=== PATIENT | male | born 1970 | race Caucasian/White ===

== ENCOUNTER 2017-06-30 14:57 | Inpatient (IN) | payer MEDICAID ==
[~2017-06-30] VITALS: Ht 182.9 cm; Wt 97.5 kg
[~2017-06-30 14:57] MED LIST: BUDEPRION SR150 MG; CYMBALTA60 MG; GEODON60 MG; IBUPROFEN 800800 M1; JANUMET 50-1,01 EACH; LAMOTRIGINE100 MG; LISINOPRIL-HCT1 EAC1; LOVAZA1000 MG; RANITIDINE HCL150 M1; TRILIPIX135 MG
[2017-06-30 14:58] VITALS: BP 147/87
[2017-06-30 15:20] LABS: ABSOLUTE BASOPHILS 0.1 thou/uL (0.0-0.2); ABSOLUTE EOSINOPHILS 0.2 thou/uL (0.0-0.7); ABSOLUTE LYMPHOCYTES 2.4 thou/uL (0.8-5.3); ABSOLUTE MONOCYTES 0.5 thou/uL (0.0-1.2); ABSOLUTE NEUTROPHILS 4.8 thou/uL (1.6-8.1); BASOPHILS 0.8 %; EOSINOPHILS 2.2 %; HEMOGLOBIN 14.8 gm/dL (14.0-18.0); LYMPHOCYTES 30.3 %; MCH 31.4 pg (26.0-34.0); MCHC 35.2 g/dL (28.0-37.0); MCV 89.4 fL (80.0-100.0); MONOCYTES 5.9 %; MPV 8.8 fl. (7.2-11.1); NUCLEATED RBCS 0 /100WBC; PLATELET COUNT* 183 thou/uL (150-400); POLYS 60.8 %; RDW-CV 13.3 % (10.5-14.5); WBC 7.9 thou/uL (4.0-11.0)
[2017-06-30 15:26] LABS: ANION GAP 11 mmol/L (7-16); BUN 15 mg/dL (7-18); CALCIUM 7.9 mg/dL (8.5-10.1); CHLORIDE 93 mmol/L (98-107); CO2 23 mmol/L (21-32); CREATININE 0.9 mg/dL (0.6-1.3); GLUCOSE 453 mg/dL (70-99); POTASSIUM 3.9 mmol/L (3.5-5.1); SODIUM 127 mmol/L (136-145)
[2017-06-30 15:38] LABS: ALBUMIN 3.3 g/dL (3.4-5.0); ALKALINE PHOSPHATASE 134 U/L (46-116); SGPT 20 U/L (30-65); TOTAL BILIRUBIN 0.5 mg/dL (<0.1-1.0); TOTAL PROTEIN 6.6 g/dL (6.4-8.2); TROPONIN-I LEVEL <0.06 ng/mL (<0.06)
[2017-06-30 16:00] LABS: SGOT 18 U/L (15-37)
[2017-06-30 16:39] LABS: ACETAMINOPHEN < 2 ug/mL (10-30); ALCOHOL < 10 mg/dL (<10); SALICYLATE 3.2 mg/dL (2.8-20.0)
[2017-06-30 17:26] LABS: URINE BILIRUBIN NEGATIVE (Negative); URINE BLOOD NEGATIVE (Negative); URINE CLARITY CLEAR; URINE COLOR YELLOW; URINE GLUCOSE-RANDOM 3+ (Negative); URINE KETONES NEGATIVE (Negative); URINE LEUKOCYTES-REFLEX NEGATIVE (Negative); URINE NITRITE-REFLEX NEGATIVE (Negative); URINE PROTEIN NEGATIVE (Negative); URINE SPECIFIC GRAVITY 1.015 (1.005-1.030); URINE UROBILINOGEN 0.2 E.U./dl (0.2-1.0)
[2017-06-30 17:31] LABS: AMP/METHAMP POSITIVE (Negative); BARBITURATES Negative (Negative); BENZODIAZEPINES Negative (Negative); COCAINE Negative (Negative); METHADONE Negative (Negative); OPIATES Negative (Negative); PCP Negative (Negative); THC Negative (Negative)
[2017-06-30 17:43] LABS: BE -3.8 mmol/L (-2 to +3); HCO3 21.9 mmol/L (22.0-26.0); PCO2 42.3 mmHg (35.0-45.0); PO2 103.8 mmHg (75.0-100.0); pH 7.332 (7.340-7.450)
[2017-06-30 21:15] VITALS: BP 133/85
[2017-06-30 22:00] VITALS: BP 147/86
--- NOTE | 2017-06-30 22:24 | NUR ---
2119 ORIENTED X 4, SLEEPY GENTLEMAN TO ROOM 317 BY CART FROM ER IN STABLE CONDITION. COOPERATIVE WITH ADMISSION PROCESS. ROUTINES IN PROGRESS. SNACK PROVIDED WITH HS MEDS. VITAL SIGNS STABLE. PLAN OF CARE REVIEWED WITH PATIENT WHO VERBALIZES UNDERSTANDING AND IS IN AGREEMENT. CONTINUE TO MONITOR.
[2017-07-01 05:09] LABS: HEMATOCRIT 42.4 % (42.0-52.0); HEMOGLOBIN 14.9 gm/dL (14.0-18.0); MCHC 35.2 g/dL (28.0-37.0); MPV 8.8 fl. (7.2-11.1); RBC 4.82 mil/uL (4.50-6.00); RDW-CV 13.5 % (10.5-14.5); WBC 7.5 thou/uL (4.0-11.0)
[2017-07-01 05:29] LABS: CALCIUM 8.4 mg/dL (8.5-10.1); CREATININE 0.8 mg/dL (0.6-1.3); MAGNESIUM 1.9 mg/dL (1.8-2.4); POTASSIUM 3.7 mmol/L (3.5-5.1)
--- NOTE | 2017-07-01 05:31 | NUR ---
PATIENT HAS REMAINED ALERT AND ORIENTED X 4 THROUGHOUT THE SHIFT AND RESTING QUIETLY ON HOURLY ROUNDS. UP INDEPENDENTLY TO BR. BM SINCE ARRRIVAL TO UNIT. MEDICATED X 1 FOR HEADACHE. MEDS INITIATED PER ORDER. VITAL SIGNS STABLE. CONTINUE TO MONITOR.
[2017-07-01 09:00] VITALS: BP 136/72
--- NOTE | 2017-07-01 15:54 | EKG ---
[place] [address] ELECTROCARDIOGRAM REPORT Name: ROBERTO BRITO Room: [address] IN [facility]#: [id number] Admission: 06/30/17 Attend Phys: Khris Ennis, Discharge: Date of : 66 Report #: [id number] THIS REPORT FOR: //name// [facility] ED Test Date: 2017-06-30 Test Time: 15:16:45 Pat Name: ROBERTO BRITO Department: Room: Gender: M Chemical Processor: LAMONTE : 1970 Requested By: Nany Vázquez Order Number: [id number] MD: Rick Garcia Measurements Intervals [place] Rate: 86 P: 49 [place]: 135 QRS: 38 QRSD: 92 T: 11 QT: 356 QTc: 426 Interpretive Statements Sinus rhythm Baseline wander in lead(s) V1,V3 No previous ECG available for comparison Electronically Signed On 07-01-2017 15:54:43 CDT by Rick Garcia [email or web address] <ELECTRONICALLY SIGNED> By: Rick Garcia MD, [facility] 07/01/17 1554 1516 15 Rick Garcia MD, FACC /EPI
[2017-07-01 17:04] VITALS: BP 145/94
--- NOTE | 2017-07-01 17:14 | NUR ---
PATIENT REMAINS ALERT AND ORIENTED. REPORTS LEFT SHOULDER PAIN FROM PREVIOUS INJURY. WANTS A CORTISONE SHOT WHILE IN HOSPITAL. AMBULATES AD ARTIS. EDUCATED ON SMOKING POLICY. NICOTINE PATCH IN PLACE. IV SALINE LOCKED. SHOWERED THIS EVENING. SSI GIVEN ORDERED. CALL LIGHT WITHIN REACH. WILL CONTINUE TO MONITOR.
[2017-07-01 22:00] VITALS: BP 122/77
[2017-07-01 22:11] LABS: GLYCOHEMOGLOBIN (HGB A1C) 12.2 % (4.8-5.6)
[2017-07-02 03:11] VITALS: BP 145/94
--- NOTE | 2017-07-02 06:55 | NUR ---
ALERT AND ORIENTED. RESTED QUIETLY IN BED ALL NIGHT. DENIES NEED FOR PAIN OR NAUSEA MEDICATION. UP AD ARTIS IN ROOM. CALL LIGHT WITHIN REACH.
[2017-07-02 08:42] LABS: HEMATOCRIT 43.5 % (42.0-52.0); HEMOGLOBIN 15.1 gm/dL (14.0-18.0); MCH 30.7 pg (26.0-34.0); MCHC 34.7 g/dL (28.0-37.0); MCV 88.5 fL (80.0-100.0); MPV 8.4 fl. (7.2-11.1); RBC 4.91 mil/uL (4.50-6.00); RDW-CV 12.7 % (10.5-14.5); WBC 8.2 thou/uL (4.0-11.0)
[2017-07-02 08:55] LABS: ALBUMIN 3.1 g/dL (3.4-5.0); CALCIUM 8.2 mg/dL (8.5-10.1); CREATININE 0.7 mg/dL (0.6-1.3); MAGNESIUM 1.7 mg/dL (1.8-2.4); POTASSIUM 3.9 mmol/L (3.5-5.1); TOTAL BILIRUBIN 0.5 mg/dL (<0.1-1.0); TOTAL PROTEIN 6.6 g/dL (6.4-8.2)
--- NOTE | 2017-07-02 08:59 | NUR ---
Nutrition: Pt admitted with uncontrolled DM. Pt has h/o noncompliance, DM, HTN, HLD, polysubstance abuse, meth abuse, schizo, GERD. On linagliptin and SSI. A1c 12.2%, BG 240 this morning. Albumin 3.3. +BM yday. Wt: 215#. Per H&P, his DM is treated as type 2, but he is considered type 1.5. Poor nutrition-quality of life R/T lifestyle/substance abuse AEB labs, noncompliance, DM. Due to noncompliance, no nutrition educ given today. If nutrition education is desired, please consult. GOAL: better BG control, better medical compliance.
[2017-07-02 09:00] VITALS: BP 136/87
--- NOTE | 2017-07-02 10:22 | NUR ---
PT LEFT AMA, REFUSING TO WAIT FOR HIMS TO ROUND. PT STATED 'I'M GOOD' WHEN ASKED REASON FOR LEAVING. AMA FORM SIGNED AFTER EDUCATION GIVEN. IV REMOVED BEFORE PT LEAVING. PT DID REQUEST NUMBER FOR MEDICAID TRANSPORTATION AND WAS GIVEN NUMBER.
[2017-07-02] MEDS ORDERED: NOHOMEMEDICATIONS (15:14)
== END 2017-07-02 10:15 | disposition left against medical advice (07) | DRG 638 ==
LOC: M.ERS 14:57 → M.TBA-ER 19:05 → M.ORTHSURG 21:19 → M.3W 21:20
PROVIDERS: Nurse Practitioner Family; ADMIT Family Medicine
DX: E11.65 Type 2 diabetes mellitus with hyperglycemia (principal); F15.20 Other stimulant dependence, uncomplicated; E87.1 Hypo-osmolality and hyponatremia; I10 Essential (primary) hypertension; E78.00 Pure hypercholesterolemia, unspecified; K21.9 Gastro-esophageal reflux disease without esophagitis; F32.9 Major depressive disorder, single episode, unspecified; F41.9 Anxiety disorder, unspecified; F25.9 Schizoaffective disorder, unspecified; F17.210 Nicotine dependence, cigarettes, uncomplicated; E78.5 Hyperlipidemia, unspecified; Z53.21 Procedure and treatment not carried out due to patient leaving prior to being seen by health care provider; Z88.6 Allergy status to analgesic agent; Z91.19 Patient's noncompliance with other medical treatment and regimen; Z79.899 Other long term (current) drug therapy

== ENCOUNTER 2017-07-02 15:08 | Emergency (ER) | payer MEDICAID ==
[~2017-07-02] VITALS: Ht 180.3 cm; Wt 97.5 kg
[2017-07-02] MEDS ORDERED: NOHOMEMEDICATIONS (15:14)
[2017-07-02 16:23] VITALS: BP 147/97
== END 2017-07-02 16:25 | disposition home or self-care (01) ==
LOC: M.ERS 15:08
DX: E11.9 Type 2 diabetes mellitus without complications (principal); I10 Essential (primary) hypertension; K21.9 Gastro-esophageal reflux disease without esophagitis; E78.00 Pure hypercholesterolemia, unspecified; F41.9 Anxiety disorder, unspecified; F32.9 Major depressive disorder, single episode, unspecified; F25.9 Schizoaffective disorder, unspecified; F17.210 Nicotine dependence, cigarettes, uncomplicated; Z88.6 Allergy status to analgesic agent

== ENCOUNTER 2017-08-04 22:07 | Emergency (ER) | payer MEDICAID ==
[~2017-08-04] VITALS: Ht 182.9 cm; Wt 95.3 kg
[~2017-08-04 22:07] MED LIST changes: +NOHOMEMEDICATIONS
[2017-08-04 22:38] LABS: ABSOLUTE EOSINOPHILS 0.2 thou/uL (0.0-0.7); ABSOLUTE LYMPHOCYTES 2.2 thou/uL (0.8-5.3); ABSOLUTE MONOCYTES 0.6 thou/uL (0.0-1.2); ABSOLUTE NEUTROPHILS 4.5 thou/uL (1.6-8.1); BASOPHILS 0.5 %; EOSINOPHILS 2.5 %; HEMATOCRIT 42.1 % (42.0-52.0); HEMOGLOBIN 14.4 gm/dL (14.0-18.0); MCHC 34.1 g/dL (28.0-37.0); MCV 90.9 fL (80.0-100.0); MONOCYTES 8.2 %; MPV 7.7 fl. (7.2-11.1); NUCLEATED RBCS 0 /100WBC; PLATELET COUNT* 228 thou/uL (150-400); POLYS 59.8 %; RBC 4.64 mil/uL (4.50-6.00); RDW-CV 13.7 % (10.5-14.5); WBC 7.5 thou/uL (4.0-11.0)
[2017-08-04 22:46] LABS: CALCIUM 9.2 mg/dL (8.5-10.1); CREATININE 1.3 mg/dL (0.6-1.3); POTASSIUM 3.5 mmol/L (3.5-5.1)
[2017-08-04 22:51] LABS: ALBUMIN 3.8 g/dL (3.4-5.0); TOTAL BILIRUBIN 0.4 mg/dL (<0.1-1.0); TOTAL PROTEIN 7.1 g/dL (6.4-8.2)
[2017-08-04 23:00] LABS: ACETAMINOPHEN < 2 ug/mL (10-30); ALCOHOL < 10 mg/dL (<10); SALICYLATE 3.5 mg/dL (2.8-20.0)
[2017-08-04] MEDS ORDERED: TRIAMCINOLONE A80 G2 TOP (23:25)
[2017-08-04] MEDS ORDERED: BENADRYL25 MG PO (23:26)
[2017-08-04 23:39] VITALS: BP 132/86
== END 2017-08-04 23:39 | disposition home or self-care (01) ==
LOC: M.ERS 22:07
PROVIDERS: Emergency Medicine
DX: S80.861A Insect bite (nonvenomous), right lower leg, initial encounter (principal); S80.862A Insect bite (nonvenomous), left lower leg, initial encounter; S50.861A Insect bite (nonvenomous) of right forearm, initial encounter; E11.9 Type 2 diabetes mellitus without complications; I10 Essential (primary) hypertension; E78.00 Pure hypercholesterolemia, unspecified; K21.9 Gastro-esophageal reflux disease without esophagitis; F32.9 Major depressive disorder, single episode, unspecified; F41.9 Anxiety disorder, unspecified; F90.9 Attention-deficit hyperactivity disorder, unspecified type; Z88.5 Allergy status to narcotic agent; W57.XXXA Bitten or stung by nonvenomous insect and other nonvenomous arthropods, initial encounter; Y93.89 Activity, other specified; Y92.89 Other specified places as the place of occurrence of the external cause; Y99.8 Other external cause status

== ENCOUNTER 2017-10-08 14:21 | Emergency (ER) | payer MEDICAID ==
[~2017-10-08] VITALS: Ht 180.3 cm; Wt 90.7 kg
[~2017-10-08 14:21] MED LIST changes: +BENADRYL25 MG PO; +TRIAMCINOLONE A80 G2 TOP
[2017-10-08 14:58] LABS: ABSOLUTE EOSINOPHILS 0.1 thou/uL (0.0-0.7); ABSOLUTE LYMPHOCYTES 2.6 thou/uL (0.8-5.3); ABSOLUTE MONOCYTES 0.6 thou/uL (0.0-1.2); ABSOLUTE NEUTROPHILS 4.4 thou/uL (1.6-8.1); BASOPHILS 0.3 %; EOSINOPHILS 1.3 %; HEMATOCRIT 45.5 % (42.0-52.0); HEMOGLOBIN 15.7 gm/dL (14.0-18.0); LYMPHOCYTES 33.2 %; MCH 30.4 pg (26.0-34.0); MCHC 34.4 g/dL (28.0-37.0); MCV 88.4 fL (80.0-100.0); MONOCYTES 7.7 %; MPV 8.2 fl. (7.2-11.1); NUCLEATED RBCS 0 /100WBC; PLATELET COUNT* 218 thou/uL (150-400); POLYS 57.5 %; RBC 5.15 mil/uL (4.50-6.00); RDW-CV 13.7 % (10.5-14.5); WBC 7.7 thou/uL (4.0-11.0)
[2017-10-08 15:02] LABS: CALCIUM 8.8 mg/dL (8.5-10.1); POTASSIUM 3.9 mmol/L (3.5-5.1)
[2017-10-08 15:07] LABS: ALBUMIN 4.2 g/dL (3.4-5.0); TOTAL BILIRUBIN 0.4 mg/dL (<0.1-1.0); TOTAL PROTEIN 7.7 g/dL (6.4-8.2)
[2017-10-08] MEDS ORDERED: CLEOCIN HCL150 MG PO (15:36)
[2017-10-08] MEDS ORDERED: METFORMIN HCL500 MG PO (15:36)
[2017-10-08] MEDS ORDERED: LISINOPRIL10 MG PO (15:36)
[2017-10-08 15:38] LABS: URINE BILIRUBIN NEGATIVE (Negative); URINE BLOOD NEGATIVE (Negative); URINE CLARITY CLEAR; URINE COLOR YELLOW; URINE GLUCOSE-RANDOM 3+ (Negative); URINE KETONES NEGATIVE (Negative); URINE LEUKOCYTES-REFLEX NEGATIVE (Negative); URINE NITRITE-REFLEX NEGATIVE (Negative); URINE PROTEIN 1+ (Negative); URINE SPECIFIC GRAVITY 1.025 (1.005-1.030); URINE UROBILINOGEN 0.2 E.U./dl (0.2-1.0)
[2017-10-08 16:24] VITALS: BP 143/107
== END 2017-10-08 16:29 | disposition home or self-care (01) ==
LOC: M.ERS 14:21
PROVIDERS: Nurse Practitioner Psychiatric/Mental Health
DX: S91.301D Unspecified open wound, right foot, subsequent encounter (principal); I10 Essential (primary) hypertension; E11.9 Type 2 diabetes mellitus without complications; E78.00 Pure hypercholesterolemia, unspecified; K21.9 Gastro-esophageal reflux disease without esophagitis; Z88.5 Allergy status to narcotic agent; X58.XXXD Exposure to other specified factors, subsequent encounter

== ENCOUNTER 2017-12-01 09:45 | Emergency (ER) | payer OTHER ==
[~2017-12-01] VITALS: Ht 180.3 cm; Wt 95.3 kg
[~2017-12-01 09:45] MED LIST changes: +CLEOCIN HCL150 MG PO; +LISINOPRIL10 MG PO; +METFORMIN HCL500 MG PO
[2017-12-01 10:08] LABS: ABSOLUTE EOSINOPHILS 0.1 thou/uL (0.0-0.7); ABSOLUTE MONOCYTES 0.5 thou/uL (0.0-1.2); ABSOLUTE NEUTROPHILS 5.1 thou/uL (1.6-8.1); BASOPHILS 0.5 %; EOSINOPHILS 1.2 %; HEMATOCRIT 44.5 % (42.0-52.0); HEMOGLOBIN 15.1 gm/dL (14.0-18.0); LYMPHOCYTES 25.5 %; MCH 30.5 pg (26.0-34.0); MCHC 33.9 g/dL (28.0-37.0); MCV 90.2 fL (80.0-100.0); MONOCYTES 6.1 %; MPV 8.2 fl. (7.2-11.1); NUCLEATED RBCS 0 /100WBC; PLATELET COUNT* 211 thou/uL (150-400); POLYS 66.7 %; RBC 4.94 mil/uL (4.50-6.00); RDW-CV 14.2 % (10.5-14.5); WBC 7.7 thou/uL (4.0-11.0)
[2017-12-01 10:10] LABS: ANION GAP 6 mmol/L (7-16); BUN 10 mg/dL (7-18); CALCIUM 8.9 mg/dL (8.5-10.1); CHLORIDE 97 mmol/L (98-107); CO2 30 mmol/L (21-32); CREATININE 0.9 mg/dL (0.6-1.3); GLUCOSE 295 mg/dL (70-99); POTASSIUM 3.6 mmol/L (3.5-5.1); SODIUM 133 mmol/L (136-145)
[2017-12-01 10:14] LABS: APTT 26.7 Seconds (25.0-31.3); INR 1.1; PROTIME 10.9 Seconds (9.20-11.50)
[2017-12-01 10:16] LABS: ACETAMINOPHEN < 2 ug/mL (10-30); ALCOHOL < 10 mg/dL (<10); SALICYLATE < 2.8 mg/dL (2.8-20.0)
[2017-12-01 10:17] LABS: ALBUMIN 4.1 g/dL (3.4-5.0); ALKALINE PHOSPHATASE 100 U/L (46-116); SGOT 22 U/L (15-37); SGPT 28 U/L (30-65); TOTAL BILIRUBIN 0.7 mg/dL (<0.1-1.0); TOTAL PROTEIN 7.6 g/dL (6.4-8.2); TROPONIN-I LEVEL <0.06 ng/mL (<0.06)
[2017-12-01 10:34] LABS: BE 1.6 mmol/L (-2 to +3); HCO3 26.5 mmol/L (22.0-26.0); PCO2 42.5 mmHg (35.0-45.0); PO2 44.4 mmHg (75.0-100.0); pH 7.413 (7.340-7.450)
[2017-12-01 11:26] LABS: URINE BILIRUBIN NEGATIVE (Negative); URINE BLOOD NEGATIVE (Negative); URINE CLARITY CLEAR; URINE COLOR YELLOW; URINE GLUCOSE-RANDOM 3+ (Negative); URINE KETONES NEGATIVE (Negative); URINE LEUKOCYTES-REFLEX NEGATIVE (Negative); URINE NITRITE-REFLEX NEGATIVE (Negative); URINE PROTEIN TRACE (Negative); URINE SPECIFIC GRAVITY 1.025 (1.005-1.030); URINE UROBILINOGEN 0.2 E.U./dl (0.2-1.0)
[2017-12-01 11:29] LABS: BE 0.3 mmol/L (-2 to +3); HCO3 26.3 mmol/L (22.0-26.0); PCO2 47.3 mmHg (35.0-45.0); PO2 107.6 mmHg (75.0-100.0); pH 7.363 (7.340-7.450)
[2017-12-01 11:34] LABS: AMP/METHAMP POSITIVE (Negative); BARBITURATES Negative (Negative); BENZODIAZEPINES Negative (Negative); COCAINE Negative (Negative); METHADONE Negative (Negative); OPIATES POSITIVE (Negative); PCP Negative (Negative); THC Negative (Negative)
[2017-12-01 12:24] LABS: BE -1.1 mmol/L (-2 to +3); PCO2 36.9 mmHg (35.0-45.0); PO2 96.3 mmHg (75.0-100.0); pH 7.413 (7.340-7.450)
[2017-12-01 12:50] VITALS: BP 184/103
--- NOTE | 2017-12-02 11:59 | EKG ---
[place] [address] ELECTROCARDIOGRAM REPORT Name: ROBERTO BRITO Room: [facility]#: [id number] Admission: 12/01/17 Attend Phys: Discharge: 12/01/17 Date of : 66 Report #: [id number] THIS REPORT FOR: //name// [facility] ED Test Date: 2017-12-01 Test Time: 09:54:33 Pat Name: ROBERTO BRITO Department: Room: Gender: Gang Leader: Salvador ALLEN : 1970 Requested By: Kobe Mcgrath Order Number: [id number] MD: Joe Hanson Measurements Intervals [place] Rate: 90 P: 59 [place]: 133 QRS: 35 QRSD: 105 T: 2 QT: 362 QTc: 443 Interpretive Statements Sinus rhythm Probable left atrial enlargement RSR' in V1 or V2, right VCD or RVH ST elev, probable normal early repol pattern Compared to ECG 06/30/2017 15:16:45 Right ventricular hypertrophy now present RSR' in V1 or V2 now present ST (T wave) deviation now present Electronically Signed On 12-02-2017 11:59:25 CDT by Joe Hanson [email or web address] <ELECTRONICALLY SIGNED> By: Joe Hanson MD, FACC 12/02/17 1159 [id number] [id number] Joe Hanson MD, FACC /EPI
--- NOTE | 2017-12-02 11:59 | EKG ---
[place] [address] ELECTROCARDIOGRAM REPORT Name: ROBERTO BRITO Room: [facility]#: [id number] Admission: 12/01/17 Attend Phys: Discharge: 12/01/17 Date of : 66 Report #: [id number] THIS REPORT FOR: //name// [facility] ED Test Date: 2017-12-01 Test Time: 11:49:43 Pat Name: ROBERTO BRITO Department: Room: Gender: It Technical Architect: Salvador ALLEN : 1970 Requested By: Kobe Mcgrath Order Number: [id number] MD: Joe Hanson Measurements Intervals [place] Rate: 88 P: 2 [place]: 125 QRS: 51 QRSD: 91 T: 30 QT: 356 QTc: 431 Interpretive Statements Sinus rhythm Compared to ECG 06/30/2017 15:16:45 No significant changes Electronically Signed On 12-02-2017 11:59:43 CDT by Joe Hanson [email or web address] <ELECTRONICALLY SIGNED> By: Joe Hanson MD, [facility] 12/02/17 1159 1149 1149 oJe Hanson MD, FACC /EPI
--- NOTE | 2017-12-02 11:59 | EKG ---
[place] [address] ELECTROCARDIOGRAM REPORT Name: ROBERTO BRITO Room: [facility]#: [id number] Admission: 12/01/17 Attend Phys: Discharge: 12/01/17 Date of : 66 Report #: [id number] THIS REPORT FOR: //name// [facility] ED Test Date: 2017-12-01 Test Time: 10:13:41 Pat Name: ROBERTO BRITO Department: Room: Gender: M Cmo: : 1970 Requested By: Kobe Mcgrath Order Number: [id number] MD: Jeo Hanson Measurements Intervals [place] Rate: 90 P: 5 [place]: 136 QRS: 42 QRSD: 107 T: 12 QT: 358 QTc: 438 Interpretive Statements Sinus rhythm Compared to ECG 06/30/2017 15:16:45 No significant changes Electronically Signed On 12-02-2017 11:59:30 CDT by Joe Hanson [email or web address] <ELECTRONICALLY SIGNED> By: Joe Hanson MD, FACC 12/02/17 1159 1013 1013 Joe Hanson MD, FACC /EPI
== END 2017-12-01 12:56 ==
LOC: M.ERS 09:45
PROVIDERS: Emergency Medicine Emergency Medical Services
DX: F19.10 Other psychoactive substance abuse, uncomplicated (principal); R11.0 Nausea; E11.9 Type 2 diabetes mellitus without complications; I10 Essential (primary) hypertension; E78.00 Pure hypercholesterolemia, unspecified; K21.9 Gastro-esophageal reflux disease without esophagitis; F32.9 Major depressive disorder, single episode, unspecified; F41.9 Anxiety disorder, unspecified; F25.9 Schizoaffective disorder, unspecified

== ENCOUNTER 2017-12-16 13:15 | Emergency (ER) | payer OTHER ==
[~2017-12-16] VITALS: Ht 177.8 cm; Wt 95.3 kg
[2017-12-16 14:08] LABS: ABSOLUTE EOSINOPHILS 0.2 thou/uL (0.0-0.7); ABSOLUTE LYMPHOCYTES 2.3 thou/uL (0.8-5.3); ABSOLUTE MONOCYTES 0.5 thou/uL (0.0-1.2); ABSOLUTE NEUTROPHILS 6.5 thou/uL (1.6-8.1); BASOPHILS 0.3 %; EOSINOPHILS 2.1 %; HEMATOCRIT 46.9 % (42.0-52.0); LYMPHOCYTES 23.9 %; MCH 31.2 pg (26.0-34.0); MCHC 34.1 g/dL (28.0-37.0); MCV 91.6 fL (80.0-100.0); MONOCYTES 5.2 %; MPV 8.2 fl. (7.2-11.1); NUCLEATED RBCS 0 /100WBC; PLATELET COUNT* 234 thou/uL (150-400); POLYS 68.5 %; RBC 5.12 mil/uL (4.50-6.00); RDW-CV 13.8 % (10.5-14.5); WBC 9.5 thou/uL (4.0-11.0)
[2017-12-16 14:30] LABS: CALCIUM 8.6 mg/dL (8.5-10.1); CREATININE 1.3 mg/dL (0.6-1.3)
[2017-12-16 14:31] LABS: ALBUMIN 3.6 g/dL (3.4-5.0); TOTAL BILIRUBIN 0.5 mg/dL (<0.1-1.0); TOTAL PROTEIN 7.2 g/dL (6.4-8.2)
[2017-12-16 14:55] VITALS: BP 141/99
== END 2017-12-16 14:55 | disposition left against medical advice (07) ==
LOC: M.ERS 13:15
PROVIDERS: Nurse Practitioner Family
DX: E11.65 Type 2 diabetes mellitus with hyperglycemia (principal); E11.621 Type 2 diabetes mellitus with foot ulcer; L97.519 Non-pressure chronic ulcer of other part of right foot with unspecified severity; I10 Essential (primary) hypertension; E78.00 Pure hypercholesterolemia, unspecified; K21.9 Gastro-esophageal reflux disease without esophagitis; F32.9 Major depressive disorder, single episode, unspecified; F41.9 Anxiety disorder, unspecified; F25.9 Schizoaffective disorder, unspecified; F17.210 Nicotine dependence, cigarettes, uncomplicated; Z88.5 Allergy status to narcotic agent

== ENCOUNTER 2017-12-16 17:20 | Inpatient (IN) | payer OTHER ==
[~2017-12-16] VITALS: Ht 177.8 cm; Wt 95.3 kg
[2017-12-16 17:26] VITALS: BP 160/106
[2017-12-16 18:21] LABS: CALCIUM 8.5 mg/dL (8.5-10.1); CREATININE 1.1 mg/dL (0.6-1.3); POTASSIUM 4.1 mmol/L (3.5-5.1)
[2017-12-16 19:42] LABS: URINE BILIRUBIN NEGATIVE (Negative); URINE BLOOD NEGATIVE (Negative); URINE CLARITY CLEAR; URINE COLOR YELLOW; URINE GLUCOSE-RANDOM 3+ (Negative); URINE KETONES NEGATIVE (Negative); URINE LEUKOCYTES-REFLEX NEGATIVE (Negative); URINE NITRITE-REFLEX NEGATIVE (Negative); URINE PROTEIN NEGATIVE (Negative); URINE UROBILINOGEN 0.2 E.U./dl (0.2-1.0)
[2017-12-16 19:47] LABS: AMP/METHAMP POSITIVE (Negative); BARBITURATES Negative (Negative); BENZODIAZEPINES Negative (Negative); COCAINE Negative (Negative); METHADONE Negative (Negative); OPIATES Negative (Negative); PCP Negative (Negative); THC Negative (Negative)
[2017-12-16 20:25] VITALS: BP 150/90
[2017-12-16 21:00] VITALS: BP 130/84
--- NOTE | 2017-12-16 22:57 | NUR ---
2035 ALERT AND ORIENTED X 4 MALE PATIENT TO BED 103 BY WHEELCHAIR FROM ER IN STABLE CONDITION. MUMBLES IN IS SPEECH AND DOES NOT MAINTAIN DIERCT EYE CONTACT. IVF'S AND ANTIBIOTICS INFUSING ON ARRIVAL. ORIENTED TO ROOM, BED CONTROLS AND CALL LIGHT. BOX LUNCH PROVIDED. VITAL SIGNS STABLE. CONTINUE TO MONITOR.
[2017-12-17 03:30] LABS: ABSOLUTE EOSINOPHILS 0.3 thou/uL (0.0-0.7); ABSOLUTE LYMPHOCYTES 3.3 thou/uL (0.8-5.3); ABSOLUTE MONOCYTES 0.7 thou/uL (0.0-1.2); ABSOLUTE NEUTROPHILS 6.4 thou/uL (1.6-8.1); BASOPHILS 0.4 %; EOSINOPHILS 2.5 %; HEMATOCRIT 43.7 % (42.0-52.0); LYMPHOCYTES 31.1 %; MCH 30.9 pg (26.0-34.0); MCHC 34.3 g/dL (28.0-37.0); MONOCYTES 6.1 %; MPV 8.4 fl. (7.2-11.1); NUCLEATED RBCS 0 /100WBC; PLATELET COUNT* 212 thou/uL (150-400); POLYS 59.9 %; RBC 4.86 mil/uL (4.50-6.00); RDW-CV 13.7 % (10.5-14.5); WBC 10.7 thou/uL (4.0-11.0)
[2017-12-17 04:14] LABS: CALCIUM 7.8 mg/dL (8.5-10.1); CREATININE 0.9 mg/dL (0.6-1.3); POTASSIUM 3.9 mmol/L (3.5-5.1)
--- NOTE | 2017-12-17 04:30 | NUR ---
PATIENT RESTING QUIETLY ON HOURLY ROUNDS FROM ADMISSION. IVF'S AND ANTIBIOTICS PER ORDERS PROVIDED. HAS DENIED NEED FOR PAIN MEDICATION. CONSULTING PHYSICIANS IN AM PENDING. CONTINUE TO MONITOR.
--- NOTE | 2017-12-17 07:58 | NUR ---
PATIENT VERBALLY ABUSIVE WITH STAFF THIS AM. CALLING STAFF VULGAR NAMES. REFUSING MEDICAL TREATMENT. SECURITY CALLED. PATIENTS BEHAVIOR DID NOT CHANGE AFTER SECURITY'S VISIT. IN TO SEE PATIENT. PATIENT REQUESTED CAB. LEAVING AMA. REFUSING TO SIGN ANY PAPERWORK. STATES HE NEEDS CIGARETTES. CAB VOUCHER GIVEN.
--- NOTE | 2017-12-17 08:12 | NUR ---
PATIENT LEFT AT THIS TIME
[2017-12-17 23:06] LABS: GLYCOHEMOGLOBIN (HGB A1C) 11.1 % (4.8-5.6)
--- NOTE | 2017-12-18 07:46 | CON ---
[facility] [address] [place] [address] CONSULTATION Name: ROBERTO BRITO Room: [address] IN M.R.#: [id number] Admission: 12/16/17 Attend Phys: Martin Castellanos MD Discharge: 12/17/17 Date of : 66 Report #: [id number] THIS REPORT FOR: //name// CC: Martin Castellanos [facility] physician/PCP DATE OF SERVICE: 12/17/2017 ATTENDING PHYSICIAN: Martin Castellanos M.D. REASON FOR EVALUATION: Right foot plantar ulcer overlying the first MTP in the setting of diabetes mellitus that has been uncontrolled. HISTORY OF PRESENT ILLNESS: Chart reviewed, patient examined. This is a 47-year-old with known illicit substance abuse who is quite agitated, who presents with complaints of foot discomfort, has a longstanding ulcer for the last several months involving the plantar aspect overlying the first metatarsophalangeal joint on the right. He is not forthcoming with lot of details of history. It is unclear. I think he perhaps has had fevers. He denies chills, shakes, sweats. His blood sugars clearly when he came in were markedly elevated at greater than 400. He does state he has good feeling in his feet and then proceeded to say that he does not hurt at the site of the ulcer. He states his weight has been stable. He denies any chest pain. No pulmonary or gastrointestinal related complaints. ALLERGIES: CODEINE. CURRENT MEDICATIONS: Include enoxaparin, pantoprazole, vancomycin, Zosyn, hydrocodone, lorazepam, ondansetron, polyethylene, insulin, p.r.n. analgesics and antiemetics. PAST MEDICAL HISTORY: Diabetes mellitus, history of hypertension, high cholesterol, reflux, depression, anxiety, schizoaffective disorder, illicit drug use. SOCIAL HISTORY: He does not smoke cigarettes, occasional ethanol. FAMILY HISTORY: Noncontributory. REVIEW OF SYSTEMS: Otherwise unremarkable with the exception of above including the 10-point evaluation. He denies any difficulty voiding. No limitations in terms of ambulation. PHYSICAL EXAMINATION: GENERAL: He has a borderline agitated. He seems to answer appropriate. He is oriented, somewhat chronically ill, [place] [address] CONSULTATION Name: ROBERTO BRITO Room: [address]#: [id number] Admission: 12/16/17 Attend Phys: Martin Castellanos MD Discharge: 12/17/17 Date of : 66 Report #: [id number] VITAL SIGNS: Temperature 98.5, pulse 85, respirations 18, blood pressure 130/84. SKIN: Warm, dry, no rashes. HEENT: Otherwise, unremarkable. No eye injection. No oral lesions including ulcers. LUNGS: Generally clear to auscultation. HEART: Regular rate. I do not appreciate any murmur. ABDOMEN: Soft, nontender, nondistended. There is no organomegaly. SKIN: Kind of leela complexion. There is no distal lower extremity edema. Right foot is somewhat bland appearing, bottom aspect has a ____ rounded roughly 1.5 cm lesion that extends at least to the subcutaneous tissue. There is a scant amount of purulence. It is difficult to ascertain. I do not think there is significant pain associated with palpation. GENITOURINARY: Deferred. RECTAL: Deferred. LABORATORY DATA: Plain film of the foot showed soft tissue defect along the medial plantar surface. Nothing for bony abnormality. CBC: White count of 9.5, H and H 16.0 and 46.9, platelets of 234. Lactic acid of 3.9 initially, repeat was 1.5. Electrolytes: Sodium 129, potassium 4, chloride 94, bicarbonate 26, anion gap of 9, BUN and creatinine 16 and 1.3. Initial glucose was 592. LFTs unremarkable including total bilirubin of 0.5, alkaline phosphatase was borderline elevated at 138. Albumin of 3.6. Total protein 7.2. Urinalysis 3+ glucose, negative for protein, no white cells. Drug screen positive for amphetamine, methamphetamine. ASSESSMENT AND PLAN: Chronic ulceration involving the right foot overlying the first metatarsophalangeal, plantar aspect. There is some evidence of inflammation with purulence. At this point, he plans on leaving. We will transition to oral antibiotics. We do not have any other culture material prior to this. It is difficult to ascertain. I do not think there is any evidence of polymicrobial etiology, certainly could be any number of organisms. We will go ahead and utilize some Augmentin. Tentatively followup with the wound care center. <ELECTRONICALLY SIGNED> By: Eugene Young MD 12/18/17 0746 0803 1923Joroopa Young MD /nt
== END 2017-12-17 08:13 | disposition left against medical advice (07) | DRG 637 ==
LOC: M.ERS 17:20 → M.ORTHSURG 19:12 → M.TBA-ER 19:12 → M.ORTHSURG 20:36
PROVIDERS: Nurse Practitioner Family; ADMIT Internal Medicine
DX: E11.65 Type 2 diabetes mellitus with hyperglycemia (principal); E11.00 Type 2 diabetes mellitus with hyperosmolarity without nonketotic hyperglycemic-hyperosmolar coma (NKHHC); G93.40 Encephalopathy, unspecified; E11.621 Type 2 diabetes mellitus with foot ulcer; I10 Essential (primary) hypertension; K21.9 Gastro-esophageal reflux disease without esophagitis; E78.00 Pure hypercholesterolemia, unspecified; F32.9 Major depressive disorder, single episode, unspecified; F41.9 Anxiety disorder, unspecified; F17.210 Nicotine dependence, cigarettes, uncomplicated; F19.10 Other psychoactive substance abuse, uncomplicated; Z53.21 Procedure and treatment not carried out due to patient leaving prior to being seen by health care provider; Z88.6 Allergy status to analgesic agent; Z91.19 Patient's noncompliance with other medical treatment and regimen

== ENCOUNTER 2018-01-09 06:31 | Emergency (ER) | payer OTHER ==
[~2018-01-09] VITALS: Ht 182.9 cm; Wt 90.7 kg
[2018-01-09] MEDS ORDERED: NEURONTIN 300300 M1 PO (06:46)
[2018-01-09 07:00] VITALS: BP 183/98
== END 2018-01-09 07:50 | disposition left against medical advice (07) ==
LOC: M.ERS 06:31
DX: E11.621 Type 2 diabetes mellitus with foot ulcer (principal); L97.519 Non-pressure chronic ulcer of other part of right foot with unspecified severity

== ENCOUNTER 2018-01-19 13:35 | Emergency (ER) | payer OTHER ==
[~2018-01-19] VITALS: Ht 182.9 cm; Wt 93.0 kg
[~2018-01-19 13:35] MED LIST changes: +NEURONTIN 300300 M1 PO
[2018-01-19] MEDS ORDERED: KEFLEX500 M1 PO (14:15)
[2018-01-19 14:41] VITALS: BP 136/85
== END 2018-01-19 14:42 | disposition home or self-care (01) ==
LOC: M.ERS 13:35
DX: E11.621 Type 2 diabetes mellitus with foot ulcer (principal); I10 Essential (primary) hypertension; E78.00 Pure hypercholesterolemia, unspecified; K21.9 Gastro-esophageal reflux disease without esophagitis; F41.9 Anxiety disorder, unspecified; F32.9 Major depressive disorder, single episode, unspecified